=== PATIENT | male | born 1980 | race Caucasian/White ===

== ENCOUNTER 2017-04-01 01:15 | Emergency (ER) | payer OTHER ==
[~2017-04-01] VITALS: Ht 185.4 cm; Wt 124.7 kg
[~2017-04-01 01:15] MED LIST: 'PARAFON FORTE500 M1 PO; AMOXICILLIN500 MG PO; AMOXIL500 MG PO; CATAFLAM50 MG PO; CLEOCIN HCL150 MG PO; CLEOCIN150 MG PO; HYDROCODONE BIT1 T11 PO; IBU-8800 MG PO; MOBIC15 MG PO; NAPROSYN500 MG PO; PREDNISONE20 MG PO; SOMA350 MG PO
[2017-04-01] MEDS ORDERED: ETODOLAC400 M2 PO (01:24)
[2017-04-01] MEDS ORDERED: TRAMADOL HCL50 MG PO (01:24)
[2017-04-01] MEDS ORDERED: VIBRAMYCIN100 MG PO (01:58)
[2017-04-01 02:05] LABS: BASO % 0.4 % (0.0-1.0); EOS # 0.2 10*3/uL (0.0-0.4); EOS % 1.6 % (1.0-4.0); HEMATOCRIT 42.1 % (42.0-52.0); HEMOGLOBIN 14.2 g/dl (14.0-18.0); LYMPH # 2.7 10*3/uL (1.3-4.4); LYMPH % 25.3 % (27.0-41.0); MEAN CORPUSCULAR HGB 32.1 pg (27.0-31.0); MEAN CORPUSCULAR HGB CONC 33.7 g/dl (33.0-37.0); MEAN PLATELET VOLUME 9.3 fl (9.6-12.3); MONO # 0.6 10*3/uL (0.1-1.0); MONO % 5.2 % (3.0-9.0); NEUT # 7.2 10*3/uL (2.3-7.9); NEUT % 67.2 % (47.0-73.0); PLATELET COUNT AUTOMATED 249 10*3/uL (130-400); RED BLOOD COUNT 4.43 10*6/uL (4.50-5.90); RED CELL DISTRI WIDTH 12.3 % (0-14.5); WHITE BLOOD COUNT 10.8 10*3/uL (4.8-10.8)
[2017-04-01 02:21] LABS: ALBUMIN 3.6 gm/dl (3.1-4.5); ALKALINE PHOSPHATASE 43 U/L (45-117); BILIRUBIN, TOTAL 0.4 mg/dl (0.2-1.0); BUN 12 mg/dl (7-24); CARBON DIOXIDE 29 mmol/L (21-32); CHLORIDE 105 mmol/L (98-107); EST GLOM FILT AFRICAN AMERICAN > 60 ml/min; GLUCOSE 120 mg/dL (65-99); POTASSIUM 3.4 mmol/L (3.5-5.1); SGOT/AST 26 IU/L (3-35); SGPT/ALT 26 U/L (12-78); SODIUM 143 mmol/L (136-145)
== END 2017-04-01 03:25 | disposition home or self-care (01) ==
LOC: ED 01:15
PROVIDERS: Emergency Medicine
DX: L03.116 Cellulitis of left lower limb (principal); R51 Headache; F17.200 Nicotine dependence, unspecified, uncomplicated; Z79.899 Other long term (current) drug therapy

== ENCOUNTER 2018-08-25 15:39 | Emergency (ER) | payer BC ==
[~2018-08-25] VITALS: Ht 185.4 cm; Wt 127.0 kg
[~2018-08-25 15:39] MED LIST changes: +ETODOLAC400 M2 PO; +TRAMADOL HCL50 MG PO; +VIBRAMYCIN100 MG PO
[2018-08-25] MEDS ORDERED: NAPROSYN500 MG PO (15:44)
[2018-08-25] MEDS ORDERED: CHLORZOXAZONE500 M2 PO (15:44)
== END 2018-08-25 16:52 | disposition home or self-care (01) ==
LOC: ED 15:39
DX: S39.012A Strain of muscle, fascia and tendon of lower back, initial encounter (principal); R03.0 Elevated blood-pressure reading, without diagnosis of hypertension; Z79.2 Long term (current) use of antibiotics; Z79.899 Other long term (current) drug therapy; X50.1XXA Overexertion from prolonged static or awkward postures, initial encounter; Y93.89 Activity, other specified; Y92.89 Other specified places as the place of occurrence of the external cause; Y99.8 Other external cause status